=== PATIENT | male | born 1955 | race African-American/Black ===

== ENCOUNTER 2024-11-18 23:34 | Inpatient (IN) | payer MEDICARE, MEDICAID ==
[~2024-11-18] VITALS: Ht 175.3 cm; Wt 72.6 kg
[~2024-11-18 23:34] MED LIST: FLUC100T MT; FLUC100T PO; GABA-529 PO; KEPP500 MT
[2024-11-18 23:45] VITALS: BP_SYST 109; BP_SYST 112; BP_DIAS 64; PULSE 72; RESP 18; TEMP 37.00296; TEMP 37.0296; O2SAT 98
[2024-11-19] MEDS ORDERED: ONDANSETRON HCL 4MG/2ML INJ IV PRN (01:45)
[2024-11-19] MEDS ORDERED: DIPHENHYDRAMINE 50MG/ML VIAL IV PRN (01:45)
[2024-11-19] MEDS ORDERED: DOCUSATE SODIUM 100MG CAPSULE PO PRN (01:45)
[2024-11-19] MEDS ORDERED: ACETAMINOPHEN 650MG/20.3ML UDC PO PRN (01:45)
[2024-11-19] MEDS ORDERED: CLONIDINE 0.1MG TABLET PO PRN (01:45)
[2024-11-19] MEDS ORDERED: ACETAMINOPHEN 325MG TABLET PO PRN (01:45)
[2024-11-19] MEDS ORDERED: MAGNESIUM/ALUMINUM HYDROXIDE/SIMETHICONE 30ML UDC PO PRN (01:45)
[2024-11-19] MEDS ORDERED: ZOLPIDEM TARTRATE 5MG TABLET PO PRN (01:45)
[2024-11-19] MEDS: SODIUM CHLORIDE 0.9% 3ML FLUSH IVF SCH (04:16)
[2024-11-19 08:00] VITALS: BP 127/54; PULSE 63; RESP 19; TEMP 36.22512; O2SAT 95
[2024-11-19] MEDS: LEVETIRACETAM 500MG/5ML CUP PO SCH (09:28)
[2024-11-19] MEDS: FLUCONAZOLE 100MG TABLET PO SCH (09:28)
[2024-11-19 20:00] VITALS: BP 112/67; PULSE 72; RESP 18; TEMP 36.78072; O2SAT 97
[2024-11-19] MEDS: FAMOTIDINE 20MG TABLET PO SCH (22:54)
[2024-11-20] VITALS: BP 130/75; PULSE 70; RESP 19; TEMP 36.61404; O2SAT 97
[2024-11-20 08:00] VITALS: BP 120/72; PULSE 61; RESP 18; TEMP 36.00288; O2SAT 98
[2024-11-20] MEDS: PROPRANOLOL HCL 10MG TABLET PO SCH (09:13)
[2024-11-20] MEDS ORDERED: CLON0.1T PO (18:54)
[2024-11-20] MEDS ORDERED: HYDR50TA54 PO (18:54)
[2024-11-20] MEDS ORDERED: TAMS-11 PO (18:54)
[2024-11-20 20:00] VITALS: BP 128/75; PULSE 73; RESP 19; TEMP 36.72516; O2SAT 97
[2024-11-21 08:00] VITALS: BP 107/77; PULSE 62; RESP 18; TEMP 36.05844; O2SAT 99
[2024-11-21] MEDS ORDERED: BISACODYL 5MG TABLET PO PRN (14:45)
[2024-11-21] MEDS: DOCUSATE SODIUM 100MG CAPSULE PO SCH (15:24)
[2024-11-21 18:02] LABS: CHLORIDE 105 mEq/L (98-107); POTASSIUM 4.9 mEq/L (3.5-5.1); SODIUM 138 mEq/L (136-145)
[2024-11-21 18:03] LABS: CALCIUM 11.4 mg/dL (8.7-10.4); CARBON DIOXIDE 29 mEq/L (21-32)
[2024-11-21 18:08] LABS: CREATININE 1.2 mg/dL (0.6-1.3); GLUCOSE 100 mg/dL (70-105); UREA NITROGEN BLOOD 14 mg/dL (9-23)
[2024-11-21 18:12] LABS: BASOPHILS % 0.8 % (0.0-2.0); EOSINOPHILS % 1.8 % (0.0-5.0); HEMOGLOBIN. 16.7 g/dL (14.0-18.0); LYMPHOCYTES % 41.5 % (20.0-50.0); MEAN CORPUSCULAR HEMOGLOBIN 30.4 pg (28.0-32.0); MEAN CORPUSCULAR HGB CONC 32.8 g/dL (31.0-37.0); MEAN CORPUSCULAR VOLUME 92.7 fL (80.0-94.0); MEAN PLATELET VOLUME 8.7 fl (7.4-10.4); NEUTROPHILS % 43.9 % (40.0-76.0); PLATELET 212 x1000/uL (130-400); RED CELL DISTRIBUTION WIDTH 13.5 % (11.6-14.6); WHITE BLOOD COUNT 5.7 x1000/uL (4.5-11.0)
[2024-11-21 20:00] VITALS: BP 141/62; PULSE 82; RESP 19; TEMP 36.72516; O2SAT 97
[2024-11-21] MEDS ORDERED: PROPRANOLOL HCL 10MG TABLET PO SCH (21:15)
[2024-11-22] MEDS: PROPRANOLOL HCL 10MG TABLET PO SCH (05:20)
[2024-11-22 08:00] VITALS: BP 124/82; PULSE 62; RESP 18; TEMP 35.94732; O2SAT 99
[2024-11-22 20:00] VITALS: BP 128/72; PULSE 62; RESP 18; TEMP 36.22512; O2SAT 98
[2024-11-23 08:00] VITALS: BP 125/63; PULSE 76; RESP 20; TEMP 36.44736; O2SAT 100
[2024-11-23 20:00] VITALS: BP 123/60; PULSE 71; RESP 17; TEMP 36.72516; O2SAT 92
[2024-11-24 08:00] VITALS: BP 118/85; PULSE 55; RESP 20; TEMP 36.114; O2SAT 100
[2024-11-24 20:00] VITALS: BP 120/79; PULSE 73; RESP 18; TEMP 36.50292; O2SAT 100
[2024-11-25 08:00] VITALS: BP 120/69; PULSE 56; RESP 18; TEMP 35.78064; O2SAT 99
[2024-11-25 20:00] VITALS: BP 119/57; PULSE 62; RESP 18; TEMP 36.28068; O2SAT 99
[2024-11-26 08:00] VITALS: BP 120/68; PULSE 63; RESP 20; TEMP 36.00288; O2SAT 100
[2024-11-26 12:00] LABS: PROTHROMBIN TIME 11.1 sec (9.6-11.0)
[2024-11-27 08:00] VITALS: BP 122/73; PULSE 57; RESP 19; TEMP 36.05844; O2SAT 97
[2024-11-27 08:23] VITALS: BP 114/75; PULSE 82; RESP 18; TEMP 36.50292; O2SAT 96
[2024-11-27] MEDS ORDERED: LIDOCAINE HCL 1% 10 MG/ML 10ML VIAL ONE (08:34)
[2024-11-27 13:02] LABS: CSF TOTAL VOLUME 1.5 mL
[2024-11-27 13:25] LABS: CSF APPEARANCE BLOODY (CLEAR)
[2024-11-27 14:02] LABS: CSF WHITE BLOOD CELL 425 /cu mm (0-10)
[2024-11-27 16:09] LABS: GLUCOSE CSF 13 mg/dL (41-75)
[2024-11-27 20:00] VITALS: BP 131/72; PULSE 74; RESP 17; TEMP 36.114; O2SAT 95
[2024-11-28 08:00] VITALS: BP 128/78; PULSE 68; RESP 19; TEMP 36.114; TEMP 36.11400; O2SAT 97
[2024-11-28 11:00] VITALS: BP 128/78; PULSE 68; TEMP 97; O2SAT 97
[2024-11-28 13:29] VITALS: PULSE 70
== END 2024-11-28 13:45 | DRG 71 ==
PROVIDERS: ADMIT Psychiatry & Neurology Neurology; ATTEND Internal Medicine
PROC: 009U3ZX Drainage of Spinal Canal, Percutaneous Approach, Diagnostic (ICD-10-PCS; principal; 2024-11-27)
PROC: B01B1ZZ Fluoroscopy of Spinal Cord using Low Osmolar Contrast (ICD-10-PCS; 2024-11-27)
DX: G93.49 Other encephalopathy (principal); B38.9 Coccidioidomycosis, unspecified; F03.93 Unspecified dementia, unspecified severity, with mood disturbance; G91.9 Hydrocephalus, unspecified; G40.909 Epilepsy, unspecified, not intractable, without status epilepticus; G25.0 Essential tremor; G93.89 Other specified disorders of brain; R06.00 Dyspnea, unspecified; R53.81 Other malaise; F03.90 Unspecified dementia, unspecified severity, without behavioral disturbance, psychotic disturbance, mood disturbance, and anxiety; Z60.2 Problems related to living alone; R26.9 Unspecified abnormalities of gait and mobility; Z86.61 Personal history of infections of the central nervous system; Z91.81 History of falling; Z98.2 Presence of cerebrospinal fluid drainage device; Z79.899 Other long term (current) drug therapy
CPT/HCPCS: 36415; 62328; 80048; 82945; 84157; 85025; 86635; 87070; 87899; 92523; 93970; 97110; 97112; 97116; 97161; 97166; 97530; 97535; A4606; A4663; A6261; J2003; J2405

== ENCOUNTER 2025-04-07 11:05 | Inpatient (IN) | payer MEDICARE, MEDICAID ==
[~2025-04-07] VITALS: Ht 182.9 cm; Wt 72.6 kg
[~2025-04-07 11:05] MED LIST changes: +CLON0.1T PO; +DEXTL MT; +DOCU-138 PO; +FIDA200T PO; -FLUC100T MT; -GABA-529 PO; +HYDR50TA54 PO; +IPRA3AMP31 IH; +PANT40TA51 PO; +PROP10TA10 PO; +TAMS-54 PO; +ZOLP5TAB2 PO
[2025-04-07] MEDS ORDERED: PIPERACILLIN/TAZO 3.375G/50ML 50 ML IV ONE (11:30)
[2025-04-07] MEDS: SODIUM CHLORIDE 0.9% (SEPSIS BOLUS) IV ONE (11:42)
[2025-04-07 11:52] LABS: BASOPHILS % 0.1 % (0.0-2.0); DIFFERENTIAL COMMENT 0; HEMATOCRIT. 42.3 % (42.0-52.0); HEMOGLOBIN. 13.8 g/dL (14.0-18.0); LYMPHOCYTES % 12.7 % (20.0-50.0); MEAN CORPUSCULAR HEMOGLOBIN 29.7 pg (28.0-32.0); MEAN CORPUSCULAR HGB CONC 32.7 g/dL (31.0-37.0); MEAN PLATELET VOLUME 10.4 fl (7.4-10.4); MONOCYTES % 7.2 % (2.0-8.0); PLATELET 205 x1000/uL (130-400); RED BLOOD CELL COUNT 4.65 mill/uL (4.7-6.1); RED CELL DISTRIBUTION WIDTH 13.7 % (11.6-14.6); WHITE BLOOD COUNT 10.3 x1000/uL (4.5-11.0)
[2025-04-07] MEDS: VANCOMYCIN 1G PREMIX 200 ML IV ONE (12:00)
[2025-04-07 12:05] LABS: CHLORIDE 99 mEq/L (98-107); POTASSIUM 4.8 mEq/L (3.5-5.1); SODIUM 132 mEq/L (136-145)
[2025-04-07 12:06] LABS: CALCIUM 11.4 mg/dL (8.7-10.4); CARBON DIOXIDE 24 mEq/L (21-32)
[2025-04-07 12:11] LABS: UREA NITROGEN BLOOD 60 mg/dL (9-23)
[2025-04-07 12:13] LABS: ALANINE AMINOTRANSFERASE 37 IU/L (10-49); ALBUMIN 3.8 g/dL (3.2-4.8); ASPARTATE AMINOTRANSFERASE 47 IU/L (<34); BILIRUBIN DIRECT 0.1 mg/dL (<=3.0); BILIRUBIN TOTAL 0.3 mg/dL (0.1-1.0); PROTEIN TOTAL 6.8 g/dL (6.0-8.3)
[2025-04-07 12:28] LABS: CREATININE 1.3 mg/dL (0.6-1.3); LACTIC ACID 3.3 mmol/L (0.4-2.0)
[2025-04-07 12:37] LABS: GLUCOSE 492 mg/dL (70-105)
[2025-04-07 13:17] LABS: TROPONIN I HIGH SENSITIVITY 412 ng/L (3.0-53)
[2025-04-07] MEDS: ASPIRIN 325MG EC TABLET PO ONE (13:41)
[2025-04-07] MEDS: PIPERACILLIN/TAZO 3.375G/50ML 50 ML IV SCH (13:43)
[2025-04-07] MEDS ORDERED: CLONIDINE 0.1MG TABLET GT PRN (14:45)
[2025-04-07] MEDS ORDERED: GUAIFENESIN 200MG/10ML SUGAR FREE UDC GT PRN (14:45)
[2025-04-07] MEDS ORDERED: DIPHENHYDRAMINE 50MG/ML VIAL IV PRN (14:45)
[2025-04-07] MEDS ORDERED: ONDANSETRON HCL 4MG/2ML INJ IV PRN (14:45)
[2025-04-07] MEDS ORDERED: DEXTROSE 50% WATER 50ML SYRINGE IV PRN (14:45)
[2025-04-07] MEDS ORDERED: ACETAMINOPHEN 650MG/20.3ML UDC GT PRN (14:45)
[2025-04-07] MEDS ORDERED: IPRATROPIUM/ALBUTEROL 0.5-3(2.5)MG/3ML NEB NEB PRN (14:45)
[2025-04-07] MEDS: CLOPIDOGREL 75MG TABLET GT SCH (15:30)
[2025-04-07] MEDS: CLOPIDOGREL 75MG TABLET GT ONE (15:32)
[2025-04-07] MEDS: ENOXAPARIN 40MG/0.4ML SYR SUBCUT SCH (17:15)
[2025-04-07] MEDS: SODIUM CHLORIDE 0.9% 1,000 ML IV SCH (17:15)
[2025-04-07] MEDS: BLOOD SUGAR DIAGNOSTIC STRIP TEST SCH (18:00)
[2025-04-07 20:00] VITALS: BP 119/77; PULSE 76; PULSE 79; RESP 16; RESP 18; TEMP 36.7; TEMP 36.9; O2SAT 99
[2025-04-07] MEDS: LEVETIRACETAM 500MG/5ML CUP GT SCH (21:44)
[2025-04-07] MEDS: INSULIN GLARGINE 100 UNITS/ML SUBCUT SCH (21:56)
[2025-04-07] MEDS: INSULIN LISPRO 100 UNITS/ML SUBCUT SCH (21:56)
[2025-04-07] MEDS: FLUCONAZOLE 200MG/5ML ORAL SYR GT SCH (23:48)
[2025-04-08] VITALS (10 sets, daily range): BP systolic 120–133; BP diastolic 74–90; PULSE 86–105; RESP 16–24; TEMP 36.6–36.8; O2SAT 95–100
[2025-04-08 00:24] LABS: CLARITY URINE CLEAR (CLEAR); COLOR URINE YELLOW (YELLOW); GLUCOSE URINE NEGATIVE (NEGATIVE); KETONES URINE NEGATIVE (NEGATIVE); LEUKOCYTE ESTERASE URINE NEGATIVE (NEGATIVE); NITRITE URINE NEGATIVE (NEGATIVE); OCCULT BLOOD URINE NEGATIVE (NEGATIVE); PH URINE 5.5 (4.5-8.0); PROTEIN URINE TRACE (NEGATIVE); SPECIFIC GRAVITY URINE 1.027 (1.005-1.030)
[2025-04-08 00:54] LABS: BACTERIA URINE TRACE; RBC URINE 0-2 /hpf (0-2); SQUAMOUS EPITHELIAL CELL URINE FEW /lpf (RARE/1+); WBC URINE 0-2 /hpf (0-2)
[2025-04-08] MEDS: IPRATROPIUM/ALBUTEROL 0.5-3(2.5)MG/3ML NEB HHN SCH (02:44)
[2025-04-08] MEDS ORDERED: CEFEPIME 2,000 MG in DEXT 5% WATER 100 ML IV SCH (03:00)
[2025-04-08 06:03] LABS: BASOPHILS % 0.2 % (0.0-2.0); EOSINOPHILS % 0.1 % (0.0-5.0); HEMATOCRIT. 40.5 % (42.0-52.0); HEMOGLOBIN. 13.3 g/dL (14.0-18.0); LYMPHOCYTES % 20.3 % (20.0-50.0); MEAN CORPUSCULAR HEMOGLOBIN 29.2 pg (28.0-32.0); MEAN CORPUSCULAR HGB CONC 32.9 g/dL (31.0-37.0); MEAN PLATELET VOLUME 10.3 fl (7.4-10.4); MONOCYTES % 8.5 % (2.0-8.0); NEUTROPHILS % 70.9 % (40.0-76.0); PLATELET 190 x1000/uL (130-400); RED BLOOD CELL COUNT 4.55 mill/uL (4.7-6.1); RED CELL DISTRIBUTION WIDTH 13.5 % (11.6-14.6); WHITE BLOOD COUNT 9.6 x1000/uL (4.5-11.0)
[2025-04-08 06:11] LABS: CHLORIDE 110 mEq/L (98-107); POTASSIUM 3.7 mEq/L (3.5-5.1); SODIUM 141 mEq/L (136-145)
[2025-04-08 06:12] LABS: CALCIUM 11.3 mg/dL (8.7-10.4); CARBON DIOXIDE 24 mEq/L (21-32)
[2025-04-08 06:17] LABS: CREATININE 0.7 mg/dL (0.6-1.3)
[2025-04-08 06:18] LABS: UREA NITROGEN BLOOD 34 mg/dL (9-23)
[2025-04-08 06:20] LABS: PHOSPHORUS 1.7 mg/dL (2.5-4.9)
[2025-04-08 06:37] LABS: GLUCOSE 191 mg/dL (70-105)
[2025-04-08] MEDS: CEFEPIME 2GM/50ML DUPLEX 50 ML IV SCH (07:03)
[2025-04-08] MEDS: INSULIN GLARGINE 100 UNITS/ML SUBCUT SCH (10:39)
[2025-04-08] MEDS: POTASSIUM PHOSPHATE 20 MMOL in DEXT 5% WATER 243.3333 ML IV ONE (11:24)
[2025-04-08] MEDS: BISACODYL 10MG SUPP PR SCH (12:00)
[2025-04-08 15:06] LABS: BG BASE EXCESS 0.2 mmol/L (-2.0-3.0); BG CARBOXYHEMOGLOBIN 0.9 % (0.5-1.5); BG DEOXYHEMOGLOBIN 3.5 % (0.0-5.0); BG FRACTION INSPIRED OXYGEN 30; BG HCO3 ACT 22.6 mmol/L (21.0-28.0); BG METHEMOGLOBIN 0.3 % (0.5-1.5); BG OXYGEN SATURATION 96.5 % (94.0-98.0); BG OXYHEMOGLOBIN 95.3 % (94.0-98.0); BG PCO2 30.1 mmHg (35.0-48.0); BG PH 7.493 (7.350-7.450); BG PO2 82.3 mmHg (83.0-108.0); BG SAMPLE SITE RIGHT RADIAL; BG TOTAL HEMOGLOBIN 13.4 g/dL (13.5-17.5); BG VENT MODE NASAL CANNULA
[2025-04-08] MEDS: FLUCONAZOLE 200MG/5ML ORAL SYR GT SCH (22:45)
[2025-04-09] VITALS (11 sets, daily range): BP systolic 114–142; BP diastolic 74–87; PULSE 75–110; RESP 18–36; TEMP 36.3–37.7; O2SAT 96–100
[2025-04-09] MEDS: ACETAMINOPHEN 650MG/20.3ML UDC GT PRN (10:05)
[2025-04-09 17:32] LABS: BG BASE EXCESS 0.9 mmol/L (-2.0-3.0); BG CARBOXYHEMOGLOBIN 0.6 % (0.5-1.5); BG DEOXYHEMOGLOBIN 4.8 % (0.0-5.0); BG FRACTION INSPIRED OXYGEN 32; BG HCO3 ACT 24.3 mmol/L (21.0-28.0); BG METHEMOGLOBIN 0.3 % (0.5-1.5); BG OXYGEN SATURATION 95.2 % (94.0-98.0); BG OXYHEMOGLOBIN 94.3 % (94.0-98.0); BG PCO2 35.3 mmHg (35.0-48.0); BG PH 7.456 (7.350-7.450); BG PO2 72.9 mmHg (83.0-108.0); BG SAMPLE SITE RIGHT RADIAL; BG VENT MODE NASAL CANNULA
[2025-04-09] MEDS: FUROSEMIDE 40MG/4ML VIAL IVP SCH (19:14)
[2025-04-09 19:31] LABS: BASOPHILS % 0.2 % (0.0-2.0); EOSINOPHILS % 0.4 % (0.0-5.0); HEMATOCRIT. 40.9 % (42.0-52.0); HEMOGLOBIN. 13.2 g/dL (14.0-18.0); LYMPHOCYTES % 13.3 % (20.0-50.0); MEAN CORPUSCULAR HEMOGLOBIN 29.5 pg (28.0-32.0); MEAN CORPUSCULAR HGB CONC 32.4 g/dL (31.0-37.0); MEAN CORPUSCULAR VOLUME 91.2 fL (80.0-94.0); MEAN PLATELET VOLUME 10.7 fl (7.4-10.4); MONOCYTES % 7.2 % (2.0-8.0); NEUTROPHILS % 78.9 % (40.0-76.0); PLATELET 225 x1000/uL (130-400); RED BLOOD CELL COUNT 4.48 mill/uL (4.7-6.1); RED CELL DISTRIBUTION WIDTH 13.6 % (11.6-14.6); WHITE BLOOD COUNT 9.2 x1000/uL (4.5-11.0)
[2025-04-09 19:33] LABS: CHLORIDE 114 mEq/L (98-107); POTASSIUM 4.3 mEq/L (3.5-5.1); SODIUM 145 mEq/L (136-145)
[2025-04-09 19:34] LABS: CARBON DIOXIDE 24 mEq/L (21-32)
[2025-04-09 19:35] LABS: CALCIUM 11.3 mg/dL (8.7-10.4)
[2025-04-09 19:39] LABS: CREATININE 0.6 mg/dL (0.6-1.3); GLUCOSE 183 mg/dL (70-105)
[2025-04-09 19:40] LABS: UREA NITROGEN BLOOD 25 mg/dL (9-23)
[2025-04-09 19:41] LABS: ALANINE AMINOTRANSFERASE 19 IU/L (10-49); ALBUMIN 3.1 g/dL (3.2-4.8); ASPARTATE AMINOTRANSFERASE 17 IU/L (<34)
[2025-04-09 19:42] LABS: BILIRUBIN TOTAL 0.3 mg/dL (0.1-1.0); PROTEIN TOTAL 5.7 g/dL (6.0-8.3)
[2025-04-09 20:37] LABS: TROPONIN I HIGH SENSITIVITY 58 ng/L (3.0-53)
[2025-04-10] VITALS (15 sets, daily range): BP systolic 100–120; BP diastolic 65–81; PULSE 81–102; RESP 17–33; TEMP 35.8–36.7; O2SAT 95–100
[2025-04-11] VITALS (13 sets, daily range): BP systolic 103–130; BP diastolic 60–77; PULSE 81–97; RESP 14–23; TEMP 36.4–37.1; O2SAT 95–100
[2025-04-12] VITALS (8 sets, daily range): BP systolic 115–132; BP diastolic 67–78; PULSE 77–87; RESP 17–22; TEMP 36.4–36.9; O2SAT 96–100
[2025-04-13] VITALS: BP 129/78; PULSE 78; RESP 18; TEMP 37.3; O2SAT 100
[2025-04-13 01:30] VITALS: BP 127/74; PULSE 79; RESP 18; TEMP 36.4; O2SAT 100
[2025-04-13 08:00] VITALS: BP 132/73; PULSE 78; RESP 20; TEMP 36.7; O2SAT 100
[2025-04-13 12:00] VITALS: BP 122/68; PULSE 77; RESP 20; TEMP 36.8; O2SAT 100
[2025-04-13 16:00] VITALS: BP 122/72; PULSE 75; RESP 20; TEMP 36.7; O2SAT 100
[2025-04-13 16:19] VITALS: BP 122/72; PULSE 75; TEMP 98; O2SAT 100
== END 2025-04-13 18:14 | DRG 871 ==
LOC: ER 11:05 → 8WST 13:34 → EDBEDREQ 13:39 → EDBEDREQTM 13:39 → ENRESERV 14:13 → MICUSO 18:09 → 7WST 18:30 → 5EST 04-09 19:03 → 6EST 04-13 01:10
PROVIDERS: ADMIT Internal Medicine; ATTEND Internal Medicine
DX: A41.9 Sepsis, unspecified organism (principal); G93.41 Metabolic encephalopathy; L89.153 Pressure ulcer of sacral region, stage 3; J18.9 Pneumonia, unspecified organism; J96.01 Acute respiratory failure with hypoxia; G91.9 Hydrocephalus, unspecified; J44.0 Chronic obstructive pulmonary disease with (acute) lower respiratory infection; N17.9 Acute kidney failure, unspecified; K56.7 Ileus, unspecified; G40.909 Epilepsy, unspecified, not intractable, without status epilepticus; I10 Essential (primary) hypertension; E11.65 Type 2 diabetes mellitus with hyperglycemia; I69.398 Other sequelae of cerebral infarction; R41.89 Other symptoms and signs involving cognitive functions and awareness; R13.10 Dysphagia, unspecified; E83.51 Hypocalcemia; G25.0 Essential tremor; Z86.61 Personal history of infections of the central nervous system; Z98.2 Presence of cerebrospinal fluid drainage device; Z93.1 Gastrostomy status; Y95 Nosocomial condition; Z98.61 Coronary angioplasty status; Z74.01 Bed confinement status
CPT/HCPCS: 36415; 36600; 71045; 74018; 80048; 80053; 80076; 81003; 82375; 82805; 82962; 83036; 83605; 83735; 84100; 84145; 84484; 85025; 93005; 94003; 94070; 94640; 94664; 94760; 98960; 99291; A4606; J0692; J1650; J1815; J1940; J2543; J3370; J3490; J7030; J7060